=== PATIENT | male | born 1980 ===

== ENCOUNTER 2017-04-10 20:11 | Emergency (ER) | payer SELFPAY ==
[2017-04-10 21:19] LABS: BASO % 0.2 % (0.0-2.0); EOS % 0.1 % (0.0-4.0); HEMATOCRIT 41.6 % (35.0-51.0); LYMPH # 1.2 K/uL (1.0-4.3); LYMPH % 8.9 % (20.0-40.0); MEAN CELL VOLUME 88.6 fL (80.0-94.0); MEAN CORPUSCULAR HEMOGLOBIN 30.1 pg (27.0-31.0); MEAN PLATELET VOLUME 7.2 fL (7.2-11.7); MONO # 1.1 K/uL (0.0-0.8); PLATELET COUNT 301 K/uL (130-400); RED CELL DISTRIBUTION WIDTH 12.8 % (11.5-14.5); WHITE BLOOD COUNT 13.6 K/uL (4.8-10.8)
[2017-04-10 21:22] LABS: CHLORIDE 101 mmol/L (98-107); SODIUM 134 mmol/L (132-148)
[2017-04-10 21:23] LABS: POTASSIUM 3.7 mmol/L (3.6-5.2)
[2017-04-10 21:25] LABS: ALKALINE PHOSPHATASE 111 U/L (38-126); AST/SGOT 37 U/L (17-59); BILIRUBIN,TOTAL 0.8 mg/dL (0.2-1.3); CARBON DIOXIDE 24 mmol/L (22-30); GFR AFRICAN-AMERICAN > 60; TOTAL PROTEIN 8.4 g/dL (6.3-8.3)
[2017-04-10 21:26] LABS: ALT/SGPT 44 U/L (21-72); BLOOD UREA NITROGEN 14 mg/dL (9-20); CALCIUM 9.4 mg/dl (8.6-10.4); GLUCOSE,RANDOM 87 mg/dL (75-110)
[2017-04-10 21:50] LABS: BASOPHIL 1 % (0-2); NEUTROPHIL 84 % (50-75); TOTAL CELLS COUNTED 100
[2017-04-10 21:51] LABS: LARGE PLATELETS PRESENT
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
[2017-04-10 22:51] VITALS: BP 111/67; PULSE 60; RESP 18; TEMP 97.5; O2SAT 100
--- NOTE | 2017-04-10 23:34 | C.PDOC ---
History Of Present Illness 37 year old male with a history of anxiety and panic attacks presents to the ED for evaluation of pain to right side of face and chest wall status post falling down the stairs. Patient states he "passed out" after hyperventilating and fell. He denies nausea, vomiting, shortness of breath, or visual changes. - HPI Chief Complaint (Nursing): Trauma History Per: Patient History/Exam Limitations: no limitations Onset/Duration Of Symptoms: Hrs Injury Occurred (Timing): Hours Ago: Location Of Injury: Right: Chest (chest wall ), Face Additional History Per: Prior Records - Fall Fall:Prior To Injury: Passed Out Past Medical History Reviewed: Historical Data, Nursing Documentation, Vital Signs Vital Signs: Last Vital Signs Temp 97.5 F L 04/10/17 22:50 Pulse 60 04/10/17 22:50 Resp 18 04/10/17 22:50 BP 111/67 04/10/17 22:50 Pulse Ox 100 04/10/17 23:51 Family History: States: Unknown Family Hx - Social History Hx Alcohol Use: No Hx Substance Use: No - Immunization History Hx Tetanus Toxoid Vaccination: Yes Hx Influenza Vaccination: No Hx Pneumococcal Vaccination: No Review Of Systems Constitutional: Negative for: Fever, Chills Eyes: Negative for: Vision Change Respiratory: Negative for: Shortness of Breath Gastrointestinal: Negative for: Nausea, Vomiting Skin: Positive for: Other (right sided facial and chest wall pain ) Physical Exam - Physical Exam Appears: Non-toxic, No Acute Distress Skin: Warm, Dry Head: Normacephalic, No Laceration, Other (Swelling and abrasion to lateral right eye area with slight tenderness to touch. No raiza deformity noted. ) Eye(s): bilateral: Normal Inspection, PERRL, EOMI Ear(s): Bilateral: Normal Nose: Normal, No Discharge, No Epistaxis Oral Mucosa: Moist Throat: Normal, No Erythema, No Exudate Neck: Normal ROM, Supple Chest: Symmetrical, No Deformity, Tenderness (to mid-clavicular anterior chest wall at rib 7-8 area. No pneumothorax seen. ) Cardiovascular: Rhythm Regular, No Murmur Respiratory: No Rales, No Rhonchi, No Wheezing, Other (clear to auscultation bilaterally ) Gastrointestinal/Abdominal: Soft, No Tenderness, No Distention, No Guarding, No Rebound ED Course And Treatment - Laboratory Results Result Diagrams: 04/10/17 21:08 04/10/17 21:08 ECG: Interpreted By Me, Viewed By Me ECG Rhythm: Sinus Rhythm Interpretation Of ECG: Normal axis and intervals. Rate From EC O2 Sat by Pulse Oximetry: 100 - CT Scan/US CT Head Without Intravenous Contrast Other Rad Studies (CT/US): Read By Radiologist, Radiology Report Reviewed CT/US Interpretation: FINDINGS: Brain: There is no evidence of intracranial hemorrhage. The cortical/white matter interfaces are. preserved throughout the brain. There is no intracranial mass or mass effect. Midline shift: No midline shift. Ventricles: The ventricular system is normal in size and distribution. Bones/joints: The calvarium and skull base are intact. No fracture. Soft tissues: Normal. Sinuses: Hypoplastic frontal sinuses. No mucosal thickening in the ethmoid sinuses, likely within. normal limits. The image paranasal sinuses are otherwise unremarkable. Mastoid air cells: The mastoid air cells are clear. Auditory system: The external auditory canals are patent. IMPRESSION: No acute intracranial abnormality. CT Maxillofacial Without Intravenous Contrast Other Rad Studies (CT/US): Read By Radiologist, Radiology Report Reviewed CT/US Interpretation: FINDINGS: Bones/joints: No acute fracture. Soft tissues : Unremarkable. Orbits: Unremarkable. Sinuses: Mucosal thickening left maxillary sinus. No air-fluid levels. IMPRESSION: No acute fracture. Progress Note: Head CT, X-ray of ribs and chest, labs, and EKG were ordered. Suspect right sided rib fracture of rib 8. Patient understands and will follow up in clinic for outpatient care. Disposition - Disposition Referrals: [facility] [Outside] [facility] [Outside] Disposition: HOME/ ROUTINE Disposition Time: 22:15 Condition: IMPROVED Additional Instructions: Thank you for letting us take care of you today. Your provider was Dr. Bowens. The emergency medical care you received today was directed at your acute symptoms. If you were prescribed any medication, please fill it and take as directed. It may take several days for your symptoms to resolve. Return to the Emergency Department if your symptoms worsen, do not improve, or if you have any other problems. Please contact your doctor or call one of the physicians/clinics you have been referred to that are listed on the Patient Visit Information form that is included in your discharge packet. Bring any paperwork you were given at discharge with you along with any medications you are taking to your follow up visit. Our treatment cannot replace ongoing medical care by a primary care provider (PCP) outside of the emergency department. Thank you for allowing the [facility] team to be part of your care today. Follow up with the clinic in 2-3 days for outpatient care. Prescriptions: Ibuprofen [Motrin] 600 mg PO Q6 PRN #20 tab PRN Reason: Pain, Moderate (4-7) Instructions: Rib Fracture (ED) Forms: [employer] ([employer]) - Clinical Impression Clinical Impression: Anxiety, Vasovagal attack - Scribe Statement The provider has reviewed the documentation as recorded by the Scribe Abeba Metz All medical record entries made by the Scribe were at my direction and personally dictated by me. I have reviewed the chart and agree that the record accurately reflects my personal performance of the history, physical exam, medical decision making, and the department course for this patient. I have also personally directed, reviewed, and agree with the discharge instructions and disposition.
--- NOTE | 2017-04-11 08:46 | CT ---
PROCEDURE: CT HEAD WITHOUT CONTRAST. HISTORY: r/o ICH COMPARISON: None available. TECHNIQUE: Axial computed tomography images were obtained through the head/brain without intravenous contrast. Radiation dose: Total exam DLP = 1049.6 mGy-cm. This CT exam was performed using one or more of the following dose reduction techniques: Automated exposure control, adjustment of the mA and/or kV according to patient size, and/or use of iterative reconstruction technique. FINDINGS: HEMORRHAGE: No intracranial hemorrhage. BRAIN: No mass effect or edema. No atrophy or chronic microvascular ischemic changes. VENTRICLES: Unremarkable. No hydrocephalus. CALVARIUM: Unremarkable. PARANASAL SINUSES: Unremarkable as visualized. No significant inflammatory changes. MASTOID AIR CELLS: Unremarkable as visualized. No inflammatory changes. OTHER FINDINGS: None. IMPRESSION: No evidence of acute intracranial hemorrhage intracranial collection mass effect or midline shift. Preliminary report was submitted by [facility].
--- NOTE | 2017-04-11 13:58 | RAD ---
PROCEDURE: Radiographs of the Chest and Right Ribs. HISTORY: r/o fx COMPARISON: None available. TECHNIQUE: Frontal radiograph of the chest and multiple oblique radiographs of the right ribs were obtained. FINDINGS: RIGHT RIBS: No fracture or focal lesion visualized. LUNGS: Clear. PLEURA: No pneumothorax or pleural fluid. CARDIOVASCULAR: Normal sized heart. No pulmonary vascular congestion. OTHER FINDINGS: None. IMPRESSION: Unremarkable radiographs of the chest and right ribs. No right rib fracture.
--- NOTE | 2017-04-12 12:49 | CARD ---
APPROVED REPORT EKG Measurement Heart [id number] <Conclusion> Sinus bradycardia with sinus arrhythmia Incomplete right bundle branch block Borderline ECG
== END 2017-04-10 22:54 | disposition home or self-care (01) ==
LOC: C.ER 20:11
DX: F41.9 Anxiety disorder, unspecified (principal); R55 Syncope and collapse